=== PATIENT | female | born 2000 | race American Indian/Alaskan Native ===

== ENCOUNTER 2020-10-11 14:08 | Emergency (ER) | payer OTHER ==
[~2020-10-11] VITALS: Ht 160 cm; Wt 79.4 kg
[2020-10-11] MEDS ORDERED: Prednisone10 MG PO (15:05)
== END 2020-10-11 15:08 | disposition home or self-care (01) ==
LOC: ER 14:08
DX: L23.7 Allergic contact dermatitis due to plants, except food (principal); Z79.52 Long term (current) use of systemic steroids
CPT/HCPCS: 99282

== ENCOUNTER → 2023-05-04 | Outpatient (CLI) | payer OTHER ==
[~2023-05-04] MED LIST: Prednisone10 MG PO
[2023-05-04 18:02] LABS: BASOPHILS ABSOLUTE AUTO 0.05 K/mm3 (0.00-0.23); BASOPHILS PERCENT AUTO 1 % (0-2); EOSINOPHILS ABSOLUTE AUTO 0.12 K/mm3 (0.00-0.68); EOSINOPHILS PERCENT AUTO 2 % (0-6); Hematocrit 41.4 % (33.0-51.0); Hemoglobin 13.8 g/dL (11.5-16.0); IMMATURE GRAN ABSOLUTE AUTO 0.01 K/mm3 (0.00-0.10); IMMATURE GRAN PERCENT AUTO 0 % (0-1); LYMPHOCYTES ABSOLUTE AUTO 2.81 K/mm3 (0.84-5.20); LYMPHOCYTES PERCENT AUTO 41 % (21-46); MONOCYTES ABSOLUTE AUTO 0.46 K/mm3 (0.16-1.47); MONOCYTES PERCENT AUTO 7 % (4-13); Mean Corpuscular HGB 30.4 pg (26.0-34.0); Mean Corpuscular HGB Conc 33.3 g/dL (31.5-36.5); Mean Corpuscular Volume 91 fL (80-100); Mean Platelet Volume 10.1 fL (9.1-12.4); NEUTROPHILS ABSOLUTE AUTO 3.47 K/mm3 (1.96-9.15); NEUTROPHILS PERCENT AUTO 50 % (41-73); Platelet Count 278 K/mm3 (150-400); RDW Standard Deviation 42.4 fL (35.1-46.3); Red Blood Cell Count 4.54 M/mm3 (3.80-5.20); White Blood Cell Count 6.92 K/mm3 (4.00-11.30)
[2023-05-04 19:59] LABS: Alanine Aminotransfer (ALT/SGP 21 U/L (12-78); Albumin, Blood 4.1 g/dL (3.4-5.0); Albumin/Globulin Ratio 1.2 (0.8-1.8); Alk Phos 40 U/L (50-136); Anion Gap 7 mmol/L (6-16); Aspartate Aminotrans (AST/SGOT 14 U/L (12-37); Bilirubin, Total 0.6 mg/dL (0.1-1.0); Blood Urea Nitrogen 11 mg/dL (8-24); CHOL/HDL RATIO 2.4; CO2, Blood 27 mmol/L (21-32); Calcium, Blood 9.1 mg/dL (8.5-10.1); Chloride, Blood 105 mmol/L (98-108); Cholesterol 184 mg/dL (50-200); Creatinine, Blood 0.73 mg/dL (0.40-1.00); Globulin, Blood 3.4 g/dL (2.2-4.0); Glomerular Filtration Rate 118 (60-); Glucose, Blood 88 mg/dL (70-99); HDL Cholesterol 77 mg/dL (>39); LDL/HDL RATIO 1.2; Low Density Lipoprotein Chol 93 mg/dL (0-110); Potassium, Blood 3.7 mmol/L (3.5-5.5); Sodium, Blood 139 mmol/L (136-145); Total Protein, Blood 7.5 g/dL (6.4-8.2); Triglycerides 71 mg/dL (30-140); Very Low Density Lipoprot Chol 14 mg/dL (6-28)
== END | disposition home or self-care (01) ==
LOC: LAB SHORT 16:33 → LAB 16:33
PROVIDERS: Nurse Practitioner Family
DX: Z00.00 Encounter for general adult medical examination without abnormal findings (principal); Z13.220 Encounter for screening for lipoid disorders; E55.9 Vitamin D deficiency, unspecified
CPT/HCPCS: 80053; 80061; 82306; 84443; 85025

== ENCOUNTER 2024-06-16 22:47 | Inpatient (IN) | payer OTHER ==
[~2024-06-16] VITALS: Ht 157.5 cm; Wt 117.5 kg
[2024-06-16] MEDS ORDERED: Misoprostol 25 MCG Tab VAG PRN (23:05)
[2024-06-16] MEDS ORDERED: Carboprost Tromethamine 250 MCG/ML 1ML Amp IM PRN (23:10)
[2024-06-16] MEDS ORDERED: Acetaminophen 500 MG Tab PO PRN (23:10)
[2024-06-16] MEDS ORDERED: Misoprostol 200 MCG Tab PR PRN (23:10)
[2024-06-16] MEDS ORDERED: Methylergonovine Maleate 0.2MG / ML 1ML Amp IM PRN (23:10)
[2024-06-16] MEDS ORDERED: OXYTOCIN/RINGER'S LACTATE 500 ML IV PRN (23:10)
[2024-06-16] MEDS ORDERED: Misoprostol 200 MCG Tab BC PRN (23:10)
[2024-06-16] MEDS ORDERED: Calcium Carbonate 500 MG Tab Chew PO PRN (23:10)
[2024-06-16] MEDS ORDERED: Oxytocin 10 Unit / ML Vial IM PRN (23:10)
[2024-06-16] MEDS ORDERED: Lactated Ringer's 1,000 ML IV PRN (23:10)
[2024-06-16] MEDS ORDERED: FentaNYL Citrate 50 MCG/ML 2 ML Injection IV PRN (23:10)
[2024-06-16] MEDS ORDERED: Ondansetron HCl 2 MG / ML 2ML Vial IV PRN (23:10)
[2024-06-16] MEDS ORDERED: Tranexamic Acid 100 ML IV SCH (23:20)
[2024-06-16 23:26] VITALS: BP 138/89
[2024-06-17] VITALS (48 sets, daily range): BP systolic 104–171; BP diastolic 58–112
[2024-06-17 00:22] LABS: BASOPHILS ABSOLUTE AUTO 0.06 K/mm3 (0.00-0.23); BASOPHILS PERCENT AUTO 1 % (0-2); EOSINOPHILS ABSOLUTE AUTO 0.17 K/mm3 (0.00-0.68); EOSINOPHILS PERCENT AUTO 2 % (0-6); Hematocrit 33.6 % (33.0-51.0); Hemoglobin 11.3 g/dL (11.5-16.0); IMMATURE GRAN ABSOLUTE AUTO 0.07 K/mm3 (0.00-0.10); IMMATURE GRAN PERCENT AUTO 1 % (0-1); LYMPHOCYTES ABSOLUTE AUTO 2.41 K/mm3 (0.84-5.20); LYMPHOCYTES PERCENT AUTO 29 % (21-46); MONOCYTES ABSOLUTE AUTO 0.78 K/mm3 (0.16-1.47); MONOCYTES PERCENT AUTO 9 % (4-13); Mean Corpuscular HGB 30.5 pg (26.0-34.0); Mean Corpuscular HGB Conc 33.6 g/dL (31.5-36.5); Mean Corpuscular Volume 91 fL (80-100); Mean Platelet Volume 10.3 fL (9.1-12.4); NEUTROPHILS ABSOLUTE AUTO 4.85 K/mm3 (1.96-9.15); NEUTROPHILS PERCENT AUTO 58 % (41-73); Platelet Count 320 K/mm3 (150-400); RDW Coefficient Variation 13.1 % (11.7-14.2); RDW Standard Deviation 42.5 fL (35.1-46.3); Red Blood Cell Count 3.71 M/mm3 (3.80-5.20); White Blood Cell Count 8.34 K/mm3 (4.00-11.30)
[2024-06-17 00:39] LABS: Albumin, Blood 2.4 g/dL (3.4-5.0); Albumin/Globulin Ratio 0.7 (0.8-1.8); Bilirubin, Total 0.2 mg/dL (0.1-1.0); Calcium, Blood 8.1 mg/dL (8.5-10.1); Creatinine, Blood 0.52 mg/dL (0.40-1.00); Globulin, Blood 3.5 g/dL (2.2-4.0); Potassium, Blood 3.8 mmol/L (3.5-5.5); Total Protein, Blood 5.9 g/dL (6.4-8.2)
[2024-06-17] MEDS ORDERED: PRENATAL TABLE1 EAC2 PO (01:23)
[2024-06-17] MEDS ORDERED: Lactated Ringer's 1,000 ML IV SCH ×3 (02:35→14:05)
[2024-06-17] MEDS ORDERED: FentaNYL 2mcg/ml-Bup 0.1% Epd 250 ML EPI PRN (02:35)
[2024-06-17] MEDS ORDERED: OXYTOCIN/RINGER'S LACTATE 500 ML IV SCH ×2 (02:35→13:25)
[2024-06-17] MEDS ORDERED: ePHEDrine Sulfate 50 MG/ML 1ML Injection XX PRN (02:35)
[2024-06-17] MEDS ORDERED: Lactated Ringer's 1,000 ML IV PRN ×2 (02:40)
[2024-06-17] MEDS ORDERED: Zolpidem Tartrate 10 MG Tab PO PRN (10:05)
[2024-06-17] MEDS ORDERED: DiphenhydrAMINE HCl 50 MG Cap PO PRN (10:05)
[2024-06-17] MEDS ORDERED: Magnesium Sul 4 GM/Water100 ML 100 ML IV ONE ×2 (14:05→14:08)
[2024-06-17] MEDS ORDERED: Calcium Gluconate 0.465 mEq/ml 10 ml Vial IV PRN (14:05)
[2024-06-17] MEDS ORDERED: Labetalol HCL 5 MG/ML 4ML Injection (Single Dose) IV ONE (14:05)
[2024-06-17] MEDS ORDERED: Labetalol HCL 5 MG/ML 4ML Injection (Single Dose) IV PRN ×2 (14:05)
[2024-06-17] MEDS ORDERED: Magnesium Sulfate 500 ML IV SCH (14:05)
[2024-06-17] MEDS ORDERED: Labetalol HCL 5 MG/ML 4ML Injection (Single Dose) ONE (14:09)
[2024-06-17] MEDS ORDERED: Magnesium Sulfate 500 ML IV ONE (14:09)
[2024-06-17] MEDS ORDERED: Labetalol HCL 100 MG TAB PO SCH ×3 (15:20→21:00)
[2024-06-17 15:21] LABS: BASOPHILS ABSOLUTE AUTO 0.05 K/mm3 (0.00-0.23); BASOPHILS PERCENT AUTO 1 % (0-2); EOSINOPHILS ABSOLUTE AUTO 0.15 K/mm3 (0.00-0.68); EOSINOPHILS PERCENT AUTO 2 % (0-6); Hematocrit 36.4 % (33.0-51.0); Hemoglobin 12.3 g/dL (11.5-16.0); IMMATURE GRAN ABSOLUTE AUTO 0.06 K/mm3 (0.00-0.10); IMMATURE GRAN PERCENT AUTO 1 % (0-1); LYMPHOCYTES ABSOLUTE AUTO 2.37 K/mm3 (0.84-5.20); LYMPHOCYTES PERCENT AUTO 25 % (21-46); MONOCYTES ABSOLUTE AUTO 0.88 K/mm3 (0.16-1.47); MONOCYTES PERCENT AUTO 9 % (4-13); Mean Corpuscular HGB 30.4 pg (26.0-34.0); Mean Corpuscular HGB Conc 33.8 g/dL (31.5-36.5); Mean Corpuscular Volume 90 fL (80-100); Mean Platelet Volume 10.2 fL (9.1-12.4); NEUTROPHILS ABSOLUTE AUTO 6.14 K/mm3 (1.96-9.15); NEUTROPHILS PERCENT AUTO 64 % (41-73); Platelet Count 349 K/mm3 (150-400); RDW Coefficient Variation 13.1 % (11.7-14.2); RDW Standard Deviation 43.2 fL (35.1-46.3); Red Blood Cell Count 4.04 M/mm3 (3.80-5.20); White Blood Cell Count 9.65 K/mm3 (4.00-11.30)
[2024-06-17 15:51] LABS: Albumin, Blood 2.4 g/dL (3.4-5.0); Albumin/Globulin Ratio 0.6 (0.8-1.8); Bilirubin, Total 0.4 mg/dL (0.1-1.0); Bun/Creatinine Ratio 16.5 (12.0-20.0); Calcium, Blood 9.4 mg/dL (8.5-10.1); Creatinine, Blood 0.55 mg/dL (0.40-1.00); Globulin, Blood 3.9 g/dL (2.2-4.0); Total Protein, Blood 6.3 g/dL (6.4-8.2)
[2024-06-17 15:53] LABS: International Normalized Ratio 0.87; Prothrombin Time Results 9.4 Sec (9.7-11.5)
[2024-06-17] MEDS ORDERED: Labetalol HCL 100 MG TAB PO ONE (16:30)
[2024-06-17] MEDS ORDERED: DiphenhydrAMINE HCl 50 MG/ML 1ML Vial IV PRN (18:15)
[2024-06-17] MEDS ORDERED: Naloxone HCl 0.4MG / ML 1ML Vial IV PRN (18:15)
[2024-06-17] MEDS ORDERED: Ondansetron HCl 2 MG / ML 2ML Vial IV PRN (18:15)
[2024-06-17] MEDS ORDERED: ePHEDrine Sulfate 50 MG/ML 1ML Injection IV PRN (18:15)
[2024-06-18] VITALS (59 sets, daily range): BP systolic 85–168; BP diastolic 50–105
[2024-06-18] MEDS ORDERED: Labetalol HCL 5 MG/ML 4ML Injection (Single Dose) IV PRN (01:25)
[2024-06-18] MEDS ORDERED: NIFEdipine 30 MG TabCR PO ONE (04:05)
--- NOTE | 2024-06-18 06:25 | NUR ---
DR LLAMAS IN ROOM AT [id number]
[2024-06-18] MEDS ORDERED: Loperamide HCl 2 MG Cap PO ONE (06:35)
[2024-06-18] MEDS ORDERED: Lactated Ringer's 1,000 ML IV ONE (07:10)
--- NOTE | 2024-06-18 07:17 | NUR ---
handover report given to Anjali Curiel RN at [id number]
[2024-06-18] MEDS ORDERED: NS 1,000 ML IV SCH (07:35)
[2024-06-18 07:47] LABS: Hematocrit 30.4 % (33.0-51.0); Mean Corpuscular HGB 30.1 pg (26.0-34.0); Mean Corpuscular HGB Conc 32.9 g/dL (31.5-36.5); Mean Corpuscular Volume 92 fL (80-100); Mean Platelet Volume 10.4 fL (9.1-12.4); Platelet Count 310 K/mm3 (150-400); RDW Coefficient Variation 13.1 % (11.7-14.2); RDW Standard Deviation 43.2 fL (35.1-46.3); Red Blood Cell Count 3.32 M/mm3 (3.80-5.20)
[2024-06-18 08:14] LABS: International Normalized Ratio 0.9; Prothrombin Time Results 9.7 Sec (9.7-11.5)
[2024-06-18] MEDS ORDERED: Cefazolin 2000MG/Dextrose,ISO 50 ML IV ONE (08:50)
[2024-06-18] MEDS ORDERED: CeFAZolin Sodium 2,000 MG in NS 100 ML IV ONE (08:55)
[2024-06-18] MEDS ORDERED: NS 100 ML IV ONE (09:13)
[2024-06-18] MEDS ORDERED: CeFAZolin Sodium 2,000 MG VIAL ONE (09:13)
[2024-06-18 10:26] LABS: Source, Urine Foley catheter
[2024-06-18 10:29] LABS: Appearance, Urine Hazy (Clear); Bilirubin, Urine Neg (Neg); Blood, Urine 5+ (Neg); Color, Urine Amber (P-Yellow); Glucose Qualitative, Urine Neg (Neg); Ketones, Urine Neg (Neg); Leukocyte Esterase, Urine 1+ (Neg); Nitrite, Urine Neg (Neg); Protein, Urine 2+ (Neg); Urobilinogen, Urine NORM (Normal)
[2024-06-18 10:38] LABS: Amorphous Heavy (0-Heavy); Bacteria Few /hpf; Red Blood Cells, Urine TNTC /hpf (0-2); Squamous Epithelial Cells Rare /hpf (Few)
[2024-06-18 10:39] LABS: Mucus Light (0-Heavy)
[2024-06-18] MEDS ORDERED: Witch Hazel/Glycerin PADS TOP PRN (13:30)
[2024-06-18] MEDS ORDERED: Benzocaine Topical Anesthetic Spray 60GM TOP PRN (13:30)
[2024-06-18] MEDS ORDERED: Ibuprofen 400 MG Tab PO PRN (13:30)
[2024-06-18] MEDS ORDERED: Lanolin Cream TOP PRN (13:30)
[2024-06-18] MEDS ORDERED: Ketorolac Tromethamine 30mg Vial IV PRN (13:30)
[2024-06-18] MEDS ORDERED: Docusate Sodium 100 MG Cap PO PRN (13:30)
[2024-06-18 14:51] LABS: Hematocrit 30.2 % (33.0-51.0); Hemoglobin 10.4 g/dL (11.5-16.0); Mean Corpuscular HGB Conc 34.4 g/dL (31.5-36.5); Mean Platelet Volume 10.2 fL (9.1-12.4); Platelet Count 266 K/mm3 (150-400); RDW Coefficient Variation 13.8 % (11.7-14.2); RDW Standard Deviation 42.9 fL (35.1-46.3); Red Blood Cell Count 3.47 M/mm3 (3.80-5.20); White Blood Cell Count 20.59 K/mm3 (4.00-11.30)
[2024-06-18 15:24] LABS: Mean Corpuscular Volume 87 fL (80-100)
[2024-06-18 15:39] LABS: International Normalized Ratio 0.91; Prothrombin Time Results 9.8 Sec (9.7-11.5)
[2024-06-18] MEDS ORDERED: Simethicone 80 MG Chew PO PRN (18:00)
--- NOTE | 2024-06-18 21:01 | NUR ---
PT RECEIVED INTO CARE AT 1905. REPORT RECEIVED. PT IN BED . PT DENIES ANY PAIN AND DENIES FEELING ANY INCREASE IN BLEEDING. VITAL SIGNS STABLE PER FLOWSHEET. PT DENIES ANY HYPERTENSIVE SYMPTOMS. REFLEXES +2, NO CLONUS PRESENT. AT 2015 - PT SAT AT THE EDGE OF THE BED, DENIED ANY DIZZINESS OR LIGHTHEADEDNESS. SBA WITH TWO RNS TO AMBULATE TO WASHROOM. INDWELLING CATHETER REMOVED PER PT'S REQUEST AND PER ORDER. 275MLS OF CLEAR YELLOW URINE IN UROMETER. PT AWARE TO VOID INTO [facility] BY 0230 THEN NOTIFY NURSING STAFF. JOSE ALEJANDRO BOTTLE PROVIDED WITH INSTRUCTIONS AND LOTS OF EDUCATION PROVIDED ON PROPER PERICARE. OLD PADS MEASURED FOR 15MLS OF BLOOD. PT AWARE TO LEAVE PADS IN A SEPARATE BIN TO BE WEIGHED AFTER CHANGING PADS. PT TOLERATED ACTIVITY WELL. PT LEFT SITTING IN A CHAIR IN THE ROOM. CALL BRAND WITHIN REACH.
--- NOTE | 2024-06-18 22:59 | NUR ---
PT VOIDED 230MLS OF YELLOW URINE. REPORTS FEELING LIKE SHE EMPTIED HER BLADDER. NO VOICED CONCERNS FROM PT. CARD GRINDER HELPER ENCOURAGED FREQUENT VOIDING.
[2024-06-19] VITALS (8 sets, daily range): BP systolic 112–131; BP diastolic 55–73
[2024-06-19 06:11] LABS: Hematocrit 25.3 % (33.0-51.0); Hemoglobin 8.6 g/dL (11.5-16.0); Mean Corpuscular HGB 30.2 pg (26.0-34.0); Mean Corpuscular Volume 89 fL (80-100); Mean Platelet Volume 10.3 fL (9.1-12.4); Platelet Count 251 K/mm3 (150-400); RDW Standard Deviation 48.3 fL (35.1-46.3); Red Blood Cell Count 2.85 M/mm3 (3.80-5.20); White Blood Cell Count 14.37 K/mm3 (4.00-11.30)
--- NOTE | 2024-06-19 06:50 | NUR ---
HANDOVER REPORT GIVEN TO Genet NATARAJAN RN AT [id number]
[2024-06-19 07:16] LABS: International Normalized Ratio 0.86; Prothrombin Time Results 9.3 Sec (9.7-11.5)
[2024-06-19] MEDS ORDERED: Prenatal Vit/FE Fumarate/FA 1 Tab PO SCH (09:00)
[2024-06-19] MEDS ORDERED: NIFEdipine 30 MG TabCR PO SCH (09:00)
[2024-06-19] MEDS ORDERED: Measles/Mumps/Rubella Vaccine 0.5 ML Vial SC ONE (16:45)
[2024-06-20 04:59] VITALS: BP 114/56
[2024-06-20 08:44] VITALS: BP 124/73
[2024-06-20 11:00] VITALS: BP 125/58
[2024-06-20 14:02] VITALS: BP 117/65
--- NOTE | 2024-06-20 14:03 | NUR ---
d/c to Boarder status
== END 2024-06-20 11:41 | disposition home or self-care (01) | DRG 768 ==
LOC: OBS 22:47 → BC 22:50 → OBS 22:58 → BC 22:59
PROVIDERS: ADMIT Advanced Practice Midwife
PROC: 10E0XZZ Delivery of Products of Conception, External Approach (ICD-10-PCS; principal; 2024-06-18)
PROC: 0DQR0ZZ Repair Anal Sphincter, Open Approach (ICD-10-PCS; 2024-06-18)
PROC: 10907ZC Drainage of Amniotic Fluid, Therapeutic from Products of Conception, Via Natural or Artificial Opening (ICD-10-PCS; 2024-06-18)
PROC: 3E0R3BZ Introduction of Anesthetic Agent into Spinal Canal, Percutaneous Approach (ICD-10-PCS; 2024-06-18)
PROC: 00HU33Z Insertion of Infusion Device into Spinal Canal, Percutaneous Approach (ICD-10-PCS; 2024-06-18)
PROC: 10H07YZ Insertion of Other Device into Products of Conception, Via Natural or Artificial Opening (ICD-10-PCS; 2024-06-18)
PROC: 30233N1 Transfusion of Nonautologous Red Blood Cells into Peripheral Vein, Percutaneous Approach (ICD-10-PCS; 2024-06-18)
PROC: 0UQC0ZZ Repair Cervix, Open Approach (ICD-10-PCS; 2024-06-18)
DX: O14.04 Mild to moderate pre-eclampsia, complicating childbirth (principal); Z37.0 Single live birth; Z3A.38 38 weeks gestation of pregnancy; O72.1 Other immediate postpartum hemorrhage; O70.20 Third degree perineal laceration during delivery, unspecified; O71.3 Obstetric laceration of cervix
CPT/HCPCS: 36415; 36430; 51702; 80053; 81001; 83615; 85025; 85027; 85384; 85610; 85730; 86850; 86900; 86901; 86923; 87086; 90471; 90707; A9270; J0690; J1720; J1885; J2405; J2590; J3010; J3475; J7030; J7120; P9016